=== PATIENT | male | born 1985 | race Caucasian/White ===

== ENCOUNTER 2019-11-19 10:56 | Emergency (ER) | payer OTHER ==
[2019-11-19] MEDS ORDERED: Ketorolac INJ* 30 MG/ML 1 ML VIAL IV PUSH ONE (11:18)
--- NOTE | 2019-11-19 11:20 | ED ---
HPI Chest Pain - HPI Summary HPI Summary: Patient is a 34 y/o M presenting to [facility] with chief complaint of chest pain. He states that he experienced onset of chest pain last evening and characterizes this pain as a burning sensation. This pain resolved, but around 0600 today, the patient's chest pain returned. He additionally notes radiation of pain down his left arm. Chest pain is still present and he characterizes his current pain as a pressure. He notes that palpation aggravates his pain. He additionally states that he began to exercise again a few days ago. Patient notes that he was evaluated [facility] and was sent to ED for further workup. Patient denies fever, SOB, cough, N/V, abdominal pain, pain/swelling to his legs. No COVID-19 contacts noted. Hx of HTN, diabetes, and cardiac disease are denied. FMHx of cardiac disease is noted. Home medications and allergies are reviewed. - History of Current Complaint Chief Complaint: EDChestPainROMI Time Seen by Provider: 11/19/19 11:07 Hx Obtained From: Patient Onset/Duration: Started Days Ago Timing: Intermittent Current Severity: Moderate Pain Intensity: 4 Pain Scale Used: 0-10 Numeric Chest Pain Radiates: Yes Chest Pain Radiates To:: Arm Character: Burning, Pressure/Squeezing Aggravating Factor(s): Other: - palpation Associated Signs and Symptoms: Positive: Chest Pain. Negative: Shortness of Breath, Swelling, Fever, Nausea, Cough, Productive Cough, Nonproductive Cough, Abdominal Pain, Calf Pain/Swelling, Vomiting, Edema - Allergy/Home Medications Allergies/Adverse Reactions: Allergies Allergy/AdvReac Type Severity Reaction Status Date / Time No Known Allergies Allergy Verified 11/19/19 11:18 Home Medications: Home Medications NK [No Home Medications Reported] 11/19/19 [History Confirmed 11/19/19] PMH/Surg Hx/FS Hx/Imm Hx Endocrine/Hematology History: Denies: Hx Diabetes Cardiovascular History: Denies: Hx Coronary Artery Disease, Hx Hypertension Infectious Disease History: No Infectious Disease History: Denies: Traveled Outside the [place] in Last 30 Days - Family History Known Family History: Positive: Cardiac Disease - Social History Occupation: Student Alcohol Use: Occasionally Substance Use Type: Reports: Excessive Caffeine Smoking Status (MU): Never Smoked Tobacco Review of Systems Negative: Fever Positive: Chest Pain Negative: Shortness Of Breath, Cough Negative: Abdominal Pain, Vomiting, Nausea Negative: Myalgia - calves , Edema - calves All Other Systems Reviewed And Are Negative: Yes Physical Exam - Summary Physical Exam Summary: Constitutional: Well-developed, Well-nourished, Alert. (-) Distressed Skin: Warm, Dry HENT: Normocephalic; Atraumatic Eyes: Conjunctiva normal Neck: Musculoskeletal ROM normal neck. (-) JVD, (-) Stridor, (-) Tracheal deviation Cardio: Rhythm regular, rate normal, Heart sounds normal; Intact distal pulses; The pedal pulses are 2+ and symmetric. Radial pulses are 2+ and symmetric. (-) Murmur Pulmonary/Chest wall: Effort normal. (-) Respiratory distress, (-) Wheezes, (-) Rales Abd: Soft, (-) tenderness, (-) Distension, (-) Guarding, (-) Rebound Musculoskeletal: Mild chest wall tenderness on palpation noted; (-) Edema Lymph: (-) Cervical adenopathy Neuro: Alert, Oriented x3 Psych: Mood and affect Normal Triage Information Reviewed: Yes Vital Signs On Initial Exam: Initial Vitals Temp Pulse Resp BP Pulse Ox 97.9 F 84 18 145/89 98 11/19/19 11:06 11/19/19 11:06 11/19/19 11:06 11/19/19 11:06 11/19/19 11:06 Vital Signs Reviewed: Yes Procedures - Sedation Patient Received Moderate/Deep Sedation with Procedure: No Diagnostics - Vital Signs Vital Signs Temp Pulse Resp BP Pulse Ox 11/19/19 11:06 97.9 F 84 18 145/89 98 - Laboratory Result Diagrams: 11/19/19 11:17 11/19/19 11:17 Lab Statement: Any lab studies that have been ordered have been reviewed, and results considered in the medical decision making process. - Radiology CXR Radiology Interpretation Completed By: Radiologist Summary of Radiographic Findings: IMPRESSION: #. Elevated lung volumes may reflect obstructive lung disease or simply exuberant. inspiratory effort for examination. #. No evidence for pneumonia. THIS REPORT WAS REVIEWED BY ED PHYSICIAN. - EKG 1102 Cardiac Rate: NL - rate of 82 BPM EKG Rhythm: Sinus Rhythm Summary of EKG Findings: EKG showed NSR with rate of 82 BPM, no ischemic changes. ED physician has reviewed and interpreted this EKG. Re-Evaluation - Re-Evaluation First Eval Re-Evaluation Time: 14:50 Comment: Results of workup discussed, patient to be discharged to home with PCP followup. Chest Pain Course/Dx - Course Course Of Treatment: Patient is a 34 y/o M presenting to [facility] with chief complaint of chest pain. He states that he experienced onset of chest pain last evening and characterizes this pain as a burning sensation. This pain resolved, but around 0600 today, the patient's chest pain returned. He additionally notes radiation of pain down his left arm. Chest pain is still present and he characterizes his current pain as a pressure. He notes that palpation aggravates his pain. He additionally states that he began to exercise again a few days ago. Patient notes that he was evaluated [facility] and was sent to ED for further workup. Patient denies fever, SOB, cough, N/V, abdominal pain, pain/swelling to his legs. No COVID-19 contacts noted. Hx of HTN, diabetes , and cardiac disease are denied. FMHx of cardiac disease is noted. On physical exam, mild chest wall tenderness on palpation noted. Bloodwork was obtained. First troponin was negative. Only abnormal value noted is glucose 105. Patient received 30 mg Toradol IV. EKG showed NSR with rate of 82 BPM, no ischemic changes. CXR IMPRESSION: #. Elevated lung volumes may reflect obstructive lung disease or simply exuberant. inspiratory effort for examination. #. No evidence for pneumonia. Second troponin was negative. The patient was discharged to home with PCP followup. - Diagnoses Provider Diagnoses: Atypical chest pain Discharge ED - Sign-Out/Discharge Documenting (check all that apply): Patient Departure - discharge - Discharge Plan Condition: Stable Disposition: HOME Patient Education Materials: Chest Pain (ED) Referrals: [facility] [Outside] - 3 Days Additional Instructions: PLEASE RETURN TO ED FOR ANY NEW OR WORSENING SYMPTOMS. PLEASE FOLLOW UP WITH YOUR PRIMARY CARE PHYSICIAN WITHIN THREE DAYS. - Attestation Statements Document Initiated by Jason: Yes Documenting Scribe: FABIAN GARCIA Provider For Whom Jason is Documenting (Include Credential): LORRIE BOOTHE DO Scribe Attestation: FABIAN Jara, noed for LORRIE BOOTHE DO on 11/19/19 at 1539. Status of Scribe Document: Ready
[2019-11-19 12:10] LABS: ABS Monocytes 0.4 10^3/ul (0-0.8); ABS Neutrophils 3.8 10^3/ul (1.5-7.7); Eosinophil % 0.7 %; Hematocrit 45 % (42-52); Hemoglobin 15.4 g/dL (14.0-18.0); Lymphocyte % 19.6 %; Mean Corpuscular HGB Conc 34 g/dL (31-36); Mean Corpuscular Hemoglobin 30 pg (27-31); Mean Corpuscular Volume 87 fL (80-94); Mean Platelet Volume 9.1 fL (7.4-10.4); Nucleated Red Blood Cells % 0.1; Platelet Count 183 10^3/uL (150-450); Red Blood Count 5.13 10^6 /uL (4.18-5.48); Red Cell Distribution Width 13 % (10-15); White Blood Count 5.2 10^3/uL (3.5-10.8)
[2019-11-19 12:28] LABS: Albumin 4.2 g/dL (3.2-5.2); Albumin/Globulin Ratio 1.4 (1-3); BUN/Creatinine Ratio 8.7 (8-20); Calcium 9.5 mg/dL (8.6-10.3); EGFR African American 101.3 (>60); EGFR Non-African American 83.7 (>60); Globulin 3.1 g/dL (2-4); Potassium 3.9 mmol/L (3.5-5.0); Total Bilirubin 0.5 mg/dL (0.2-1.0); Total Protein 7.3 g/dL (6.4-8.9)
[2019-11-19 15:16] VITALS: BP 114/69
== END 2019-11-19 15:15 | disposition home or self-care (01) ==
LOC: ED 10:56
DX: R07.89 Other chest pain (principal); I10 Essential (primary) hypertension; Z86.79 Personal history of other diseases of the circulatory system
CPT/HCPCS: 36415; 71046; 80053; 83605; 84484; 85025; 93005; 96374; 99283; J1885